=== PATIENT | female | born 1980 | race Caucasian/White ===

== ENCOUNTER 2021-02-28 09:22 | Emergency (ER) | payer BC ==
[~2021-02-28] VITALS: Ht 162.6 cm; Wt 77.6 kg
[2021-02-28] MEDS ORDERED: IOHEXOL 240 MG/ML 50ML VIAL. ONE (10:15)
[2021-02-28] MEDS ORDERED: IV NORMAL SALINE 1,000ML 1,000 ML IV ONE (10:15)
[2021-02-28] MEDS ORDERED: METOCLOPRAMIDE HCL 10 MG/2 ML VIAL. IVP ONE (10:15)
[2021-02-28] MEDS ORDERED: KETOROLAC 15 MG/ML VIAL. IVP ONE ×2 (10:15→14:15)
--- NOTE | 2021-02-28 10:16 | PHYS DOC ---
Past History Past Medical History: Anemia, GERD, Other Past Surgical History: Cholecystectomy, Tonsillectomy, Other Additional Past Surgical Histo: HERNIA REPAIR [place], GASTRIC BYPASS, RIGHT WRIST REPAIR Smoking: Cigarettes, Less than 1pk/day Alcohol Use: Occasionally Drug Use: None Social History Narrative: patient reports hx of opiate abuse, taking simboxone currently General Adult EDM: Chief Complaint: ABDOMINAL PAIN HPI: HPI: Patient is a 41-year-old female with past medical history of chronic anemia, GERD, gastric ulcers, Suboxone therapy x10 years, 2 internal hernia repairs, gastric bypass, cholecystectomy presenting today with abdominal pain that started last night. The pain started in the middle of her abdomen and now has moved to the right lower quadrant. Patient has taken Gas-X and Colace which have not helped. Patient did have a bowel movement. Patient is also taken Excedrin which has not helped. The pain is 7 out of 10, constant and is associated with some back pain on the lower right side. Patient denies any urinary symptoms. Patient denies any chance of . Patient does have an IUD in. Patient is denying any nausea or vomiting. Patient also denied chest pain, shortness of breath, syncope, dizziness, constipation, vaginal symptoms. Patient does states she is been taking Suboxone for about 10 years and has a pain contract with her primary care who manages her Suboxone. Review of Systems: Review of Systems: Constitutional: Denies fever or chills Eyes: Denies redness or eye pain HENT: Denies nasal congestion or sore throat Respiratory: Denies cough or shortness of breath Cardiovascular: Denies chest pain or palpitations GI: Denies nausea, or vomiting, endorses right lower quadrant abdominal pain : Denies dysuria or hematuria Musculoskeletal: Denies joint pain; reports some right-sided back pain Integument: Denies rash or skin lesions Neurologic: Denies headache, focal weakness or sensory changes Complete systems were reviewed and found to be within normal limits, except as documented in this note. Allergies: Allergies: Allergies Coded Allergies Type Severity Reaction Last Updated Verified pantoprazole Allergy Severe Hives 08/15/13 Yes tramadol Allergy Unknown hives 02/28/21 Yes Physical Exam: PE: Constitutional: Well developed, well nourished, no acute distress, non-toxic appearance HENT: Normocephalic, atraumatic Eyes: PERRL, EOMI, conjunctiva normal, no discharge Neck: Normal range of motion, no tenderness, supple Lungs & Thorax: No respiratory distress, equal chest rise and fall Abdomen: Right lower quadrant tenderness to palpation, some voluntary guarding, no rebound tenderness, bowel sounds x4, positive McBurney's point tenderness, patient is in the position Skin: Warm, dry, no erythema, no rash Back: Right-sided CVA tenderness that appears to radiate from the right lower quadrant Extremities: No tenderness, ROM intact, no edema Neurologic: Alert and oriented X 3, normal motor function, normal sensory function, no focal deficits noted Psychologic: Affect normal, judgment normal Current Patient Data: Vital Signs: Vital Signs Date Time Temp Pulse Resp B/P (MAP) Pulse Ox O2 Delivery O2 Flow Rate FiO2 02/28/21 09:37 97.9 84 18 142/96 (111) 100 Room Air Radiology/Procedures: Radiology/Procedures: PROCEDURE: CT ABD PELV W/ORAL&IV CONTRAST CT ABDOMEN+PELVIS W History: Reason: RLQ pain eval for acute appy Comparison: None. Technique: After administration of intravenous contrast, helical CT of the a bdomen and pelvis was performed from the lung bases through the ischial tuberosities. Coronal and sagittal reconstructions were obtained. 75 mL of Omnipaque 300 were used. One or more of the following dose reduction techniques were utilized: Automated exposure control (AEC), Adjustment of mA and/or kV according to patient size, Use of iterative reconstruction technique such as ASiR, CT scan done according to ALARA and image gently/image wisely Abdomen Findings: The visualized lung bases are clear. The liver, pancreas, spleen, and bilateral adrenal glands are normal. Cholecystectomy. Symmetric renal enhancement. There is no focal renal mass. There is no hydronephrosis. Tiny outpouching along the distal jejunum/proximal ileum with surrounding inflammation (series 2 image 64, series 3 image 18). Appearance of segmental wall thickening of the proximal jejunum. Large colonic stool burden. Appendix is normal. Postsurgical changes of gastric bypass. There is no mesenteric or retroperitoneal adenopathy. The abdominal aorta is normal in caliber. Pelvis Findings: Urinary bladder is normal. Uterus is present with IUD in place. No pelvic free fluid. There is no pelvic or inguinal adenopathy. There is no acute bony abnormality. IMPRESSION: Tiny focus of gas along the distal jejunum/proximal ileum with surrounding inflammation. Considerations would include a small bowel diverticulitis or Meckel's diverticulitis. Appearance of some segmental wall thickening of the proximal jejunum, possibly related to decompressed bowel but an infectious or inflammatory enteritis might have a similar appearance. If this were to be the case, the small focus of gas distally could represent a microperforation. No abscess. Normal appendix. Electronically signed by: Abhi Parker MD (02/28/2021 12:09 PM) [facility] DICTATED AND SIGNED BY: ABHI PARKER MD DATE: 02/28/21 1142 Heart Score: C/O Chest Pain: N/A Course & Med Decision Making: Course & Med Decision Making 41-year-old female with past medical history of many abdominal surgeries presents today with abdominal pain that started last night that started around the umbilicus and is moved to the right lower quadrant. Patient appears to be in severe pain while lying down in the position and does have some voluntary guarding on physical exam without rebound. Some concern for appendicitis or kidney stone at this point. Patient is on Suboxone therapy, managed by her primary care physician for about 10 years. Patient does have a pain contract. Patient was symptomatically treated with Reglan and ketorolac. Patient does have a low hemoglobin level but according to the patient she does have chronic anemia. Urinalysis is within normal limits. CT scan showed possible small bowel diverticulitis, Meckel's diverticulum, or enteritis, and possible distal microperforations. She does have a white blood cell count of 12.8. Her vital signs are within normal limits. Due to these findings, patient will need to be admitted to hospital with general surgery coverage for IV antibiotic treatment. 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 Patient requiring transfer for admission to facility with general surgery coverage for further evaluation and treatment. Utilize transfer line. CT imaging clouded to . Dr. Vernon Moore accepting of transfer for admission. Discussed findings and plan with patient, who acknowledges understanding and agreement. Jaylen Disclaimer: Jaylen Disclaimer: This electronic medical record was generated, in whole or in part, using a voice recognition dictation system. Departure Departure: Impression: Primary Impression: Diverticulitis Disposition: 02 [facility] (- Dr. Vernon Moore accepting) Condition: STABLE Referrals: JOSEPH ROBLERO MD (PCP) MELINA GRANADO DO Feb 28, 2021 10:16
[2021-02-28] MEDS ORDERED: IOHEXOL 300 MG/ML 75 ML VIAL. IV ONE (10:30)
[2021-02-28] MEDS ORDERED: IOHEXOL 240 MG/ML 50ML VIAL. PO ONE (10:30)
[2021-02-28 10:37] LABS: BASO # 0.1 x10^3/uL (0.0-0.2); BASO % 1 % (0-3); EOS # 0.3 x10^3/uL (0.0-0.7); EOS % 2 % (0-3); HEMATOCRIT 26.1 % (36.0-47.0); HEMOGLOBIN 7.8 g/dL (12.0-15.5); LYMPH % 8 % (24-48); MEAN CORPUSCULAR HEMOGLOBIN 22 pg (25-35); MEAN CORPUSCULAR HGB CONC 30 g/dL (31-37); MEAN CORPUSCULAR VOLUME 74 fL (79-100); MONO # 1.1 x10^3/uL (0.0-1.1); MONO % 9 % (0-9); NEUT # 10.3 x10^3uL (1.8-7.7); NEUT % 81 % (31-73); PLATELET COUNT 416 x10^3/uL (140-400); RED BLOOD COUNT 3.54 x10^6/uL (3.50-5.40); RED CELL DISTRIBUTION WIDTH 18.4 % (11.5-14.5); WHITE BLOOD COUNT 12.8 x10^3/uL (4.0-11.0)
[2021-02-28 10:43] LABS: CALCIUM 8.5 mg/dL (8.5-10.1); CREATININE 0.6 mg/dL (0.6-1.0); GFR 109.6; POTASSIUM 3.5 mmol/L (3.5-5.1)
[2021-02-28 10:50] LABS: ALBUMIN 2.9 g/dL (3.4-5.0); ALBUMIN/GLOBULIN RATIO 0.8 (1.0-1.7); TOTAL BILIRUBIN 0.3 mg/dL (0.2-1.0); TOTAL PROTEIN 6.5 g/dL (6.4-8.2)
[2021-02-28 11:06] LABS: BACTERIA,URINE 0 /HPF (0-FEW); BILIRUBIN,URINE NEG (NEG); CLARITY,URINE CLEAR; COLOR,URINE YELLOW; GLUCOSE,URINE NEG (NEG); NITRITE,URINE NEG (NEG); RBC,URINE 0 /HPF (0-2); SQUAMOUS EPITHELIAL CELL,UR MANY /LPF
--- NOTE | 2021-02-28 12:11 | RAD ---
CT ABDOMEN+PELVIS W History: Reason: RLQ pain eval for acute appy Comparison: None. Technique: After administration of intravenous contrast, helical CT of the abdomen and pelvis was per formed from the lung bases through the ischial tuberosities. Coronal and sagittal reconstructions wer e obtained. 75 mL of Omnipaque 300 were used. One or more of the following dose reduction techniques were utilized: Automated exposure control (AEC), Adjustment of mA and/or kV according to patient size , Use of iterative reconstruction technique such as ASiR, CT scan done according to ALARA and image g ently/image wisely Abdomen Findings: The visualized lung bases are clear. The liver, pancreas, spleen, and bilateral adrenal glands are normal. Cholecystectomy. Symmetric renal enhancement. There is no focal renal mass. There is no hydronephrosis. Tiny outpouching along the distal jejunum/proximal ileum with surrounding inflammation (series 2 imag e 64, series 3 image 18). Appearance of segmental wall thickening of the proximal jejunum. Large colo estefani stool burden. Appendix is normal. Postsurgical changes of gastric bypass. There is no mesenteric or retroperitoneal adenopathy. The abdominal aorta is normal in caliber. Pelvis Findings: Urinary bladder is normal. Uterus is present with IUD in place. No pelvic free fluid. There is no pel chhaya or inguinal adenopathy. There is no acute bony abnormality. IMPRESSION: Tiny focus of gas along the distal jejunum/proximal ileum with surrounding inflammation. Consideratio ns would include a small bowel diverticulitis or Meckel's diverticulitis. Appearance of some segmenta l wall thickening of the proximal jejunum, possibly related to decompressed bowel but an infectious o r inflammatory enteritis might have a similar appearance. If this were to be the case, the small focu s of gas distally could represent a microperforation. No abscess. Normal appendix. Electronically signed by: Neil Parker MD (02/28/2021 12:09 PM) [facility]
[2021-02-28] MEDS ORDERED: PIPERACILLIN/TAZOBACTAM 3.375 GM in IV NORMAL SALINE 50ML 50 ML IV ONE (12:45)
[2021-02-28] MEDS ORDERED: PIPERACILLIN/TAZOBACTAM 3.375 GM VIAL IV ONE (13:12)
[2021-02-28] MEDS ORDERED: IV NORMAL SALINE 50ML 50 ML ONE (13:12)
[2021-02-28 14:01] LABS: ANISOCYTOSIS PRESENT; MICROCYTOSIS PRESENT
[2021-02-28 14:02] LABS: OVALOCYTES PRESENT; TARGET CELLS PRESENT
[2021-02-28 14:03] LABS: PLT ESTIMATE ADEQUATE (ADEQUATE)
[2021-02-28 17:40] VITALS: BP 133/98
== END 2021-02-28 17:40 | disposition short-term general hospital (02) ==
LOC: ER 09:22
DX: K57.92 Diverticulitis of intestine, part unspecified, without perforation or abscess without bleeding (principal); K21.9 Gastro-esophageal reflux disease without esophagitis; F17.210 Nicotine dependence, cigarettes, uncomplicated; Z86.2 Personal history of diseases of the blood and blood-forming organs and certain disorders involving the immune mechanism; Z20.822 Contact with and (suspected) exposure to COVID-19; Z90.49 Acquired absence of other specified parts of digestive tract; Z98.84 Bariatric surgery status; Z88.8 Allergy status to other drugs, medicaments and biological substances
CPT/HCPCS: 36415; 74177; 80053; 81001; 83690; 85025; 87086; 87426; 96361; 96365; 96375; 96376; 99285; C9803; J1885; J2543; J2765; J7030; Q9966; Q9967; U0003